=== PATIENT | male | born 1995 | race African-American/Black ===

== ENCOUNTER 2017-05-09 16:05 | Emergency (ER) | payer BC ==
[~2017-05-09] VITALS: Ht 180.3 cm; Wt 95.3 kg
[2017-05-09 16:35] VITALS: BP 122/70
[2017-05-09] MEDS ORDERED: TOBR5DRO6 OD (16:41)
[2017-05-09] MEDS ORDERED: CETI10TA22 PO (16:41)
--- NOTE | 2017-05-09 16:41 | PHYS DOC ---
Past Medical History Past Medical History: No Pertinent History Past Surgical History: No Surgical History Alcohol Use: None Drug Use: Marijuana Adult General Chief Complaint Chief Complaint: EYE PROBLEMS HPI HPI Patient is a 22 year old male who presents with left eye redness with yellow drainage that began 4 days ago. Patient denies any vision loss. Review of Systems Review of Systems Constitutional: Denies fever or chills [] Eyes: left eye redness with yellow drainage. Denies change in visual acuity, or eye pain [] Musculoskeletal: Denies back pain or joint pain [] Integument: Denies rash or skin lesions [] Neurologic: Denies headache, focal weakness or sensory changes [] All other systems were reviewed and found to be within normal limits, except as documented in this note. Allergies Allergies Allergies Coded Allergies Type Severity Reaction Last Updated Verified amoxicillin Allergy Intermediate rash 01/14/14 Yes Physical Exam Physical Exam Constitutional: Well developed, well nourished, no acute distress, non-toxic appearance. [] HENT: Normocephalic, atraumatic, bilateral external ears normal, oropharynx moist, no oral exudates, nose normal. [] Eyes: PERRLA, EOMI, left conjunctiva is moderately injected with trace amount of yellow crusty material on the eyelids. Skin: Warm, dry, no erythema, no rash. [] Back: No tenderness, no CVA tenderness. [] Extremities: No tenderness, no cyanosis, no clubbing, ROM intact, no edema. [] Neurologic: Alert and oriented X 3, normal motor function, normal sensory function, no focal deficits noted. [] Psychologic: Affect normal, judgement normal, mood normal. [] EKG EKG [] Radiology/Procedures Radiology/Procedures [] Course & Med Decision Making Course & Med Decision Making Pertinent Labs and Imaging studies reviewed. (See chart for details) Patient is in the ED with left bacterial conjunctivitis. Discharged with tobramycin eye drops. Emphasized importance of good hand hygiene. Follow-up with global professional 1-2 weeks. Dragon Disclaimer Dragon Disclaimer This electronic medical record was generated, in whole or in part, using a voice recognition dictation system. Departure Departure Impression: Primary Impression: Bacterial conjunctivitis of left eye Disposition: HOME, SELF-CARE Condition: STABLE Referrals: NO PCP (PCP) Caden TRUJILLO MD follow up in one week Patient Instructions: Bacterial Conjunctivitis, [id number] Additional Instructions: You were seen for left bacterial conjunctivitis. Maintain good hand hygiene. Use the prescribed medicine as ordered. Follow-up with the provided global professional in 1-2 weeks if symptoms continue. Scripts Cetirizine Hcl (ZYRTEC) 10 Mg Tablet 1 TAB PO DAILY, #30 TAB 2 Refills Prov: LEOPOLDO RUSSELL APRN 05/09/17 Tobramycin (TOBRAMYCIN) 5 Ml Drops 1 DROP OD Q4HRS W/A, #5 ML Prov: LEOPOLDO RUSSELL APRN 05/09/17 LEOOPLDO RUSSELL APRN May 09, 2017 16:41
== END 2017-05-09 16:45 | disposition home or self-care (01) ==
LOC: ER 16:05
DX: H10.89 Other conjunctivitis (principal); F12.10 Cannabis abuse, uncomplicated; Z88.1 Allergy status to other antibiotic agents
CPT/HCPCS: 99283